=== PATIENT | male | born 1990 | race Caucasian/White ===

== ENCOUNTER 2023-01-31 17:46 | Emergency (ER) | payer BC, OTHER, SELFPAY ==
--- NOTE | 2023-01-31 17:49 | ED.URI ---
HPI - URI/Sore Throat General Chief Complaint: Upper Respiratory Infection Stated Complaint: cough,bilateral eye pressure Time Seen by Provider: 01/31/23 17:48 Source: patient Mode of arrival: ambulatory Limitations: no limitations History of Present Illness HPI Narrative: Harjit is a 32-year-old male patient presenting to clinic today with complaints of cough, sinus congestion, and bilateral eye pressure. He reports his symptoms have been going on for 2 and half weeks. He is reporting some yellow nasal drainage. He thinks he may have a sinus infection. Denies any fever or chills. MD elicited complaint: sore throat and nasal congestion Related Data Home Medications Medication Instructions Recorded Confirmed buspirone 10 mg tablet 10 mg PO DAILY 01/31/23 01/31/23 carboxymethylcellulose sodium 0.5 2 drp EACH EYE DAILY 01/31/23 01/31/23 % eye drops (Refresh Tears) divalproex 250 mg tablet,extended 250 mg PO DAILY 01/31/23 01/31/23 release 24 hr montelukast 10 mg tablet 10 mg PO HS 01/31/23 01/31/23 ubrogepant 100 mg tablet (Ubrelvy) 100 mg PO DAILY 01/31/23 01/31/23 Allergies Allergy/AdvReac Type Severity Reaction Status Date / Time SOMETHING WITH WELDING Allergy Severe Anaphylactic Uncoded 01/27/11 10:22 Shock Review of Systems Review of Systems: Pertinent positives per HPI. Patient denies any fever, chills, rash, headache, visual changes, dizziness, shortness of breath, chest pain, palpitations, nausea, vomiting, diarrhea, constipation, abdominal pain, or any urinary issues. PMFSH Comments At the time of my signature, I reviewed and agree with the nursing past medical, surgical, social, and family history. There is no relevant family history pertinent to the patient complaint. Exam Narrative: General: Well-developed, well nourished, in no apparent distress Head: Normocephalic, atraumatic Eyes: Pupils equally round and reactive to light bilaterally, EOM intact, sclera and conjunctive clear, no discharge, lids normal Ears: TMs intact and clear, ear canals clear, no drainage, grossly hearing normal. Nose: Nares patent, no discharge, no inflammation, no sinus tenderness. Mouth: Oral pharynx without lesions or masses, good dentition, MMM. Neck: Supple, trachea midline, no enlargement of anterior or posterior cervical nodes, no thyroid masses or goiter palpable. Cardio: Regular rate and rhythm, s1 and s2 normal, no murmur appreciated. Resp: Clear to auscultation bilaterally, no rhonchi, rales, wheezing or rubs Course Course Emergency Course: Portions of this record may have been created with voice recognition software. Level of Care: Express Care Visit Vital Signs Vital signs: Vital signs reviewed MDM - URI/Sore Throat MDM Narrative Medical decision making narrative: At the time of visit patient is resting comfortably on the exam table. I suspect patient has acute bacterial rhinosinusitis. Prescription for Augmentin and prednisone was sent to the pharmacy and supportive measures were discussed with the patient he voiced understanding discharge instructions and agrees to treatment plan. Patient is nontoxic appearing. Return precautions were reviewed. Differential Diagnosis Differential diagnosis: Likely sinusitis, viral infection, influenza and pharyngitis Discharge Plan Discharge Clinical Impression: Acute bacterial rhinosinusitis Patient Disposition: Home, Self-Care Condition: Stable Instructions: Antibiotic Form, Rhinosinusitis (ED) Additional Instructions: Take prescription medications only as prescribed-prednisone and Augmentin Increase fluids and stay well hydrated Tylenol/motrin for pain/fever Flonase and OTC antihistamines as directed Vicks vapor rub to open sinuses Sinus rinses for congestion Cepacol spray, cough drops, throat lozenges, warm tea with honey/lemon, gargle salt water to soothe throat BRAT diet for diarrhea Clear liquids x 24 h
[2023-01-31 18:05] VITALS: BP 146/85; PULSE 70; RESP 16; TEMP 36.4; O2SAT 100
== END 2023-01-31 18:15 | disposition home or self-care (01) ==
PROVIDERS: Emergency Provider Nurse Practitioner Family; PCP Family Medicine
DX: J01.90 Acute sinusitis, unspecified (principal); F41.9 Anxiety disorder, unspecified; Z86.16 Personal history of COVID-19
CPT/HCPCS: 87880; 99213; G0463

== ENCOUNTER 2023-06-01 16:17 | Emergency (ER) | payer OTHER, SELFPAY ==
[2023-06-01 16:28] VITALS: BP 118/83; PULSE 70; RESP 18; TEMP 36.4; O2SAT 100
[2023-06-01 16:33] VITALS: BP 118/83; PULSE 70; RESP 18; TEMP 36.4; O2SAT 100
--- NOTE | 2023-06-01 16:36 | ED.GENADULT ---
HPI - General Adult General Chief complaint: Upper Respiratory Infection Stated complaint: sorethroat Source: patient, RN notes reviewed and old records reviewed Mode of arrival: ambulatory Limitations: no limitations History of Present Illness HPI narrative: 33-year-old male patient presents to [facility] with complaints cough, congestion, sinus pressure this started about 12-13 days ago. Patient states symptoms are worsening. Patient states he is now also having yellow thick drainage from nose and coughing up thick yellow sputum. Patient taking [id number] medications with no relief. Related Data Home Medications Medication Instructions Recorded Confirmed buspirone 10 mg tablet 10 mg PO DAILY 01/31/23 01/31/23 carboxymethylcellulose sodium 0.5 2 drp EACH EYE DAILY 01/31/23 01/31/23 % eye drops (Refresh Tears) divalproex 250 mg tablet,extended 250 mg PO DAILY 01/31/23 01/31/23 release 24 hr montelukast 10 mg tablet 10 mg PO HS 01/31/23 01/31/23 ubrogepant 100 mg tablet (Ubrelvy) 100 mg PO DAILY 01/31/23 01/31/23 aspirin 81 mg chewable tablet 81 mg PO DAILY 06/01/23 06/01/23 cetirizine 10 mg tablet (Zyrtec) 10 mg PO DAILY 06/01/23 06/01/23 dicyclomine 20 mg tablet 20 mg PO BID 06/01/23 06/01/23 magnesium oxide 400 mg PO DAILY 06/01/23 06/01/23 ondansetron HCl 8 mg tablet 8 mg PO Q12H 06/01/23 06/01/23 propranolol 120 mg capsule,24 120 mg PO DAILY 06/01/23 06/01/23 hr,extended release trazodone 100 mg tablet mg 06/01/23 06/01/23 Allergies Allergy/AdvReac Type Severity Reaction Status Date / Time SOMETHING WITH WELDING Allergy Severe Anaphylactic Uncoded 06/01/23 16:28 Shock Review of Systems Constitutional: Constitutional: Reports no additional constitutional complaints, Denies body ache(s), Denies chills, Denies fatigue, Denies fever(s) and Reports headache(s) Eyes: Eyes: Reports no additional eye complaints and Denies blurry vision ENT: Reports system reviewed and no additional complaints, except as documented, Denies vertigo, Denies dizziness, Denies ear discharge, Denies otalgia, Denies facial pain, Reports headache(s), Reports nasal congestion, Reports nasal discharge, Reports sinus pain, Reports sinus pressure and Denies sore throat Cardiovascular: Cardiovascular: Reports no additional cardiovascular complaints, Denies chest pain, Denies chest pain at rest, Denies rapid heart rate and Denies dyspnea Respiratory: Respiratory: Reports no additional respiratory complaints, Reports chest congestion, Reports cough, Denies pain on inspiration, Denies pain with cough and Denies dyspnea Gastrointestinal: Gastrointestinal: Denies abdominal pain, Denies diarrhea, Denies nausea and Denies vomiting Integumentary/Breasts: Skin/Breast: Denies rash Neurologic: Reports system reviewed and no additional complaints, except as documented, Denies vertigo, Denies dizziness and Denies headache(s) Endocrine: Endocrine: Denies fatigue PMFSH Comments At the time of my signature, I reviewed and agree with the nursing past medical, surgical, social, and family history. There is no relevant family history pertinent to the patient complaint. Exam Const: General: cooperative, healthy appearing, no acute distress and well nourished Nutritional Appearance: well nourished Orientation/consciousness: patient oriented x3 Limitations: no limitations HENMT: Head: normal to inspection and normocephalic Ears: external ears normal, TM's normal bilaterally, EAC's normal and mastoids normal Face/Nose/Sinus: Abnormal mucous membranes and turbinates present boggy bilateral and erythematous bilateral, Nasal discharge present purulent bilateral, normal facial exam and sinus tenderness Face and sinus: normal facial exam and sinus tenderness maxillary Mouth: Yes Normal oral and palatal mucosa present, Yes oropharynx normal and Yes moist mucous membranes Throat: tonsils normal, uvula midline, normal tonsils, no peritonsillar masses, catechist
== END 2023-06-01 17:02 | disposition home or self-care (01) ==
PROVIDERS: Emergency Provider Registered Nurse
DX: J01.90 Acute sinusitis, unspecified (principal); Z86.16 Personal history of COVID-19
CPT/HCPCS: 99213; G0463

== ENCOUNTER 2024-11-03 10:32 | Emergency (ER) | payer OTHER, SELFPAY ==
--- OUTSIDE RECORDS SUMMARY | 2024-11-03 10:35 | XMS_ITS | Clinical Summary ---
Author Organization [facility] Address [address] [place] [address] Care Team Providers Care Vice President Talent Management Name Role Phone Gabby Rai MD Primary Care Provider [phone]- [phone] Source Comments [facility],non-owned Affiliates and Associated Physician Practices is amultiple site organization consisting of ambulatory clinics and hospital sitesin [place], [place], [place] and [place]. This disclosure is being madepursuant to the Care Everywhere program and may not contain all information available regarding this patient. Last updated 17.[facility] [email or web address] Allergies No known active allergies Medications * Be aware that medications may not be up to date on this document. Alwaysverify current medications with the patient. 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 Gender Identity Not on file Sexual Orientation Not on file Last Filed Vital Signs Vital Sign Reading Time Taken Comments Blood Pressure 130/59 09/02/2017 4:07 PM CDT Pulse 81 09/02/2017 1:20 PM CDT Temperature 36.7 C (98.1 F) 09/02/2017 12:26 PM CDT Respiratory Rate 6 09/02/2017 1:20 PM CDT Oxygen Saturation 100% 09/02/2017 4:07 PM CDT Inhaled Oxygen Concentration - - Weight 86.2 kg (190 lb) 09/02/2017 12:26 PM CDT Height 180.3 cm (5' 11) 09/02/2017 12:26 PM CDT Body Mass Index 26.5 09/02/2017 12:26 PM CDT Plan of Treatment Health Maintenance Due Date Last Done Comments HIV SCREENING 02/18/2007 HEPATITIS C SCREENING 02/14/2010 DTAP/TDAP/TD VACCINES (1 - Tdap) 02/18/2011 HEPATITIS B VACCINE (1 of 3 - 19+ 3-dose series) 02/18/2011 HPV VACCINE (1 - 3-dose SCDM series) 02/18/2019 DEPRESSION SCREENING 02/28/2024 COVID-19 VACCINE (1 - 2023-2 5 season) 2024 INFLUENZA VACCINE (#1) 2024 ZOSTER VACCINE (1 of 2) 02/18/2042 HIB VACCINE Aged Out No longer eligi ble based on patient's age to complete this topic MENINGOCOCCAL (Group B) VACC INE SHARED DECISION-MAKING Aged Out No longer eligibl e based on patient's age to complete this topic MENINGOCOCCAL GROUPS A/C/Y/W VACCINE Aged Out No longer eligible b ased on patient's age to complete this topic PNEUMOCOCCAL VACCINE Aged Out No long er eligible based on patient's age to complete this topic Insurance [facility] [employer] Address: [address] [facility] [place] [address] [facility] Member Subscriber Plan / Payer (Ef fective 2017-Present) Name:Arnulfo Hendricks Relation to Subscriber:Self Name:ARNULFO HENDRICKS Payer ID:[id number] (NAIC) Group ID:[id number] Type:PPO Address: [facility] [id number] Care Teams Vice President Talent Management Relationship Specialty Start Date End Date Gabby Rai MD [address] [place] [id number] PCP - General 9/3/10
--- OUTSIDE RECORDS SUMMARY | 2024-11-03 10:35 | XMS_ITS | Encounter Summary ---
Author Organization [facility] Address [address] [place] [address] Care Team Providers Care Kelp Or Seagrass Gatherer Name Role Phone Noah Combs NP Primary Care Provide r Paz Leon MD Primary Care Provider [phone]- [phone] Yoon Ayoub APRN Primary Care Provider +- [phone] Yoon Ayoub APRN Primary Care Provider +- [phone] Encounter Details Date Type Department Care Team (Latest Contact Info) Description 07/04/2023 MyChart Message Enc [facility] Family & Internal Medicine [facility] [address] [place] [address] Noah Combs, DEBORAH [address] [place] [address] [place] [address] Changing from testosterone pump to injection Social History Tobacco Use Types Packs/Day Years Used Date Smoking Tobacco: Never Smokeless Tobacco: Never Alcohol Use Standard Drinks/Week Comments No 0 (1 standard drink = 0.6 oz pur e alcohol) PHQ-2 Answer Date Recorded Patient Health Questionnaire-2 Score 0 05/08/2023 Sex and Gender Information Value Date Recorded Sex Assigned at Male 03/29/2024 3:10 PM PLASTIC TILE SETTER Legal Sex Male 7:49 PM CDT Gender Identity Not on file Sexual Orientation Not on file documented as of this encounter Progress Notes * Camille Reid MA - 07/06/2023 11:49 AM CDT Please advise * Remedios Mcfarland RN - 07/04/2023 10:36 AM CDT Please advise. documented in this encounter Plan of Treatment Upcoming Encounters Date Type Department Care Team (Late st Contact Info) Description 12/30/2024 4:20 PM PLASTIC TILE SETTER Office Visit [facility] Family & Internal Medicine [address] [address] Yoon Ayoub APRN [id number] [address] documented as of this encounter Visit Diagnoses Not on filedocumented in this encounter Additional Health Concerns Infection Onset Date Last Indicated Resolved Time COVID-19 Rule Out 01/16/2024 01/16/2024 01/16/2024 4:07 PM PLASTIC TILE SETTER documented as of this encounter Care Teams Kelp Or Seagrass Gatherer Relationship Specialty Start Date End Date Noah Combs NP PCP - General NURSE PRACTITIONER ADULT HEALTH 04/13/23 09/18/23 Paz Leon MD [address] [place] [address] [phone] PCP - General INTERNAL MEDICINE 09/19/23 10/02/23 Yoon Ayoub APRN [id number] [phone] PCP - General NURSE PRACTITIONER 10/03/23 10/04/23 Yoon Ayoub APRN [id number] [place] [address] PCP - General NURSE PRACTITIONER 10/06/23 documented as of this encounter
--- OUTSIDE RECORDS SUMMARY | 2024-11-03 10:35 | XMS_ITS | Clinical Summary ---
Author Organization [facility] Address [facility] [place] [address] Care Team Providers Care Director Translational Name Role Phone Yoon Ayoub APRN Primary Care Provider [phone]- [phone] Allergies No known active allergies Medications magnesium oxide 400 MG tablet 9 Active aspirin 81 MG chewable tablet Chew 1 tablet (81 mg total) by mouth daily. Active divalproex ER (DEPAKOTE) 500 MG 24 hr tablet Take 1 tablet (500 mg total) by mouth 2 (two) times a day. 4 Active ondansetron (ZOFRAN) 8 MG tablet Take 1 tablet (8 mg total) by mouth as needed. 4 Active REFRESH TEARS 0.5 % Solution ophthalmic solution Place 1 drop into both eyes as needed. 3 Active UBRELVY 100 MG tablet 3 Active divalproex ER (DEPAKOTE) 250 MG 24 hr tablet 4 Active traMADol (ULTRAM) 50 MG tabletIndications: Acute Pain < 7 Day Supply Take 1 tablet (50 mg total) by mouth every 6 (six) hours as needed for Pain. Indications: Acute Pain < 7 Day Supply 28 tablet 5 Active busPIRone (BUSPAR) 15 MG tabletIndications: Anxiety Take 1 tablet (15 mg total) by mouth 2 (two) times a day. 90 tablet 3 5 Active escitalopram (LEXAPRO) 20 MG tabletIndications: Moderate episode of recurrent major depressive disorder (CMS/HCC),Anxiety Take 1 tablet (20 mg total) by mouth daily. 90 tablet 3 5 Active testosterone cypionate (DEPO TESTOSTERONE) 200 MG/ML injectionIndicatio ns:Low testosterone in male,Primary hypogonadism in male Inject 150mg/0.75mL IM once weekly 4 mL 3 5 Active traZODone (DESYREL) 100 MG tabletIndications: Primary insomnia Take 1 tablet (100 mg total) by mouth nightly at bedtime. 90 tablet 2 5 Active fenofibrate 160 MG tabletIndications: High triglycerides TAKE 1 TABLET(160 MG) BY MOUTH DAILY 90 tablet 5 Active cetirizine (ZYRTEC) 10 MG tabletIndications: Environmental and seasonal allergies TAKE 1 TABLET BY MOUTH EVERY DAY 90 tablet 1 5 Active B-D 3CC LUER-JESUS SYR 50NO4-8/2 23G X 1-/2 3 ML Misc 5 Active Active Problems Problem Noted Date Diagnosed Date Acute low back pain with sci atica, sciatica laterality unspecified, unspecified back pain laterality 06/24/2024 Assessment & Plan (06/24/2024 1:35 PM CDT): -heat therapy/stretches Rx with medrol michelle and tizanidine Pt to return to clinic if problem continues Elevated BP without diagnosis of hypertension Assessment & Plan (06/24/2024 1:37 PM CDT): Possibly due to pain - reassess with his pcp Allergic rhinitis 03/29/2024 Attention disturbance 03/29/2024 Dry eye syndrome of bilateral lacrimal glands Encounter for medical assessment 03/29/2024 Hemiplegic migraine, intract able, without status migrainosus 03/29/2024 Hyperopia 03/29/2024 Insomnia 03/29/2024 Headache 03/29/2024 Moderate episode of recurrent major depressive d isorder 12/21/2023 Migraine without aura and wi thout status migrainosus, not intractable 10/09/2023 Obesity (BMI 30-39.9) 10/09/2023 Low testosterone in male 10/09/2023 Primary hypogonadism in male 10/09/2023 Anxiety 10/09/2023 TBI (traumatic brain injury) 10/09/2023 TIA (transient ischemic attack) 08/13/2017 Injury of head 10/30/2009 Overview (04/25/2023): Encounters Date Type Department Care Team Description 10/07/2024 MyChart Message Enc [facility] Internal [address] [address] Yoon Ayoub, LOSS MITIGATION SPECIALIST Labs 10/01/2024 Orders Only [address] [address] Yoon Ayoub, LOSS MITIGATION SPECIALIST 09/30/2024 Orders Only [facility] Internal [address] [address] Yoon Ayoub, LOSS MITIGATION SPECIALIST 09/24/2024 Orders Only [address] [address] Yoon Ayoub, LOSS MITIGATION SPECIALIST 09/24/[address] [address] Yoon Ayoub, LOSS MITIGATION SPECIALIST Referral 09/13/2024 8:40 AM CDT Office Visit [address] [address] Jeramy Lopez PA URI/ENT Symptoms (Pt c/o sinus pressure,cough,runny nose (dark yellow), fatigue X 3 weeks) 09/13/2024 Travel 08/08/2024 Telephone [facility] Internal [address] [address] Yoon Ayoub APRN Prior Authorization 08/05/2024 Scan HEALTH INFO SRVCS Scanned, [facility] 08/04/2024 Results Follow-Up [facility] Family & Internal Medicine [facility] [address] [place] [address] Yoon Ayoub APRN TESTOSTERONE, FREE & TOTAL, COMPREHENSIVE METABOLIC PANEL, TSH W/REFLEX, Additional followed-up results: 3 from Last 3 Months Immunizations Immunization Administration Dates Next Due Adenovirus Vaccine 09/12/2011 Anthrax Vaccine 02/07/2014,09/07/2013,05/20/2013 HPV4 (Gardasil) 08/01/2012 Hepatitis A/Hepatitis B(Twinrix) 08/01/2012,12/28,09/12/2011 Influenza (FluMist) 01/02/2013,11/28/2011 Influenza (Generic) 11/27/2017, 7,12/28/2016,02/06/2016 ,05/16/2015,12/23/2011 Influenza Adult (Generic) 11/24/2021,01/14/2021, 11/27/2013 MMR (MMRII) 12/23/2011 Meningococcal (Menactra) 09/09/2011 Polio IPV (Ipol) 09/09/2011 Small Pox 05/20/2013 Tdap (Generic) 11/23/2021,09/09/2011 Typhoid (Typhim ) 05/09/2013 Varicella (Varivax) 12/23/2011 Yellow Fever (YF- Vax) 05/20/2013 Social History Tobacco Use Types Packs/Day Years Used Date Smoking Tobacco: Never Passive Smoke Exposure: Never Smokeless Tobacco: Never Tobacco Cessation:Counseling Given: No Alcohol Use Standard Drinks/Week Comments No 0 (1 standard drink = 0.6 oz pur e alcohol) PHQ-2 Answer Date Recorded Patient Health Questionnaire-2 Score 3 06/18/2024 Sex and Gender Information Value Date Recorded Sex Assigned at Male 03/29/2024 3:10 PM CUFF MAKER Legal Sex Male 7:49 PM CDT Gender Identity Not on file Sexual Orientation Not on file Last Filed Vital Signs Vital Sign Reading Time Taken Comments Blood Pressure 138/83 09/13/2024 8:36 AM CDT Pulse 77 09/13/2024 8:36 AM CDT Temperature 36.3 C (97.4 F) 09/13/2024 8:36 AM CDT Respiratory Rate 16 09/13/2024 8:36 AM CDT Oxygen Saturation 98% 09/13/2024 8:36 AM CDT Inhaled Oxygen Concentration - - Weight 117.9 kg (260 lb) 09/13/2024 8:36 AM CDT Height 180.3 cm (5' 11) 09/13/2024 8:36 AM CDT Body Mass Index 36.26 09/13/2024 8:36 AM CDT Plan of Treatment Upcoming Encounters Date Type Department Care Team (Late st Contact Info) Description 12/30/2024 4:20 PM CUFF MAKER Office Visit [facility] Family & Internal Medicine [facility] [address] [place] [address] Yoon Ayoub, DELILAH [address] [address] Health Maintenance Due Date Last Done Comments HPV Vaccines (2 - Male 3-dose series) 08/29/2012 08/01/2012 COVID-19 Vaccine ( season) 2024 12/07/2022, 03/07/2022, 03/25/2021, Additional history exists ASCVD Statin 06/18/2025 Postponed from 1992 (Patient Refused) Annual Physical 06/18/2025 06/18/2024 DTaP, Tdap and Td Vaccines (3 - Td or Tdap) 11/24/2031 11/23/2021, 09/09/2011 Hepatitis C 05/07/2053 Postponed from 02/18/2010 (Patient Refused) Meningococcal Vaccine Aged Out 09/09/2011 No amanda jayleen eligible based on patient's age to complete this topic Hepatitis B Vaccines Completed 08/01/2012, 01/12/2012, 09/12/2011 PHQ-2 (Physician [place]) Completed 06/18/2024 Meningococcal B Vaccine Aged Out No l onger eligible based on patient's age to complete this topic Pneumococcal Vaccine: Pediatrics (0 to 5 Years) and At-Risk Patients (6 to 49 Years) Aged Out No longer eligible based on patient's age to complete this topic RSV Immunizations Under 20 Months Aged Out No longer eligible based on patient's age to complete this topic Insurance [facility] Advance Directives Documents on File Type Date Recorded Patient Manager Intensive Care Unit Expl anation Advance Directives and Living Will 08/22/2017 2:23 PM 08/13/2017 POA FOR HEALTHCARE * Full Code (Latest Code Status on File) Date Activated Date Inactivated Comments 08/13/2017 5:23 AM 08/13/2017 2:30 PM * Full Code Date Activated Date Inactivated Comments 08/13/2017 4:33 AM 08/13/2017 5:23 AM Care Teams Director Translational Relationship Specialty Start Date End Date Yoon Ayoub APRN [id number] [place] [address] PCP - General NURSE PRACTITIONER 10/06/23
--- OUTSIDE RECORDS SUMMARY | 2024-11-03 10:35 | XMS_ITS | Encounter Summary ---
Author Organization [facility] Address [address] [place] [address] Care Team Providers Care Cable Worker Helper Name Role Phone Noah Combs NP Primary Care Provide r Paz Leon MD Primary Care Provider +1- [phone] Yoon Ayoub APRN Primary Care Provider +- [phone] Yoon Ayoub APRN Primary Care Provider +- [phone] Encounter Details Date Type Department Care Team (Late st Contact Info) Description 05/24/2023 MyChart Message Enc [facility] Family & Internal Medicine [facility] [id number] [place] [address] Noah Combs, DEBORAH [address] [place] [address] [place] [address] Lab work Social History Tobacco Use Types Packs/Day Years Used Date Smoking Tobacco: Never Smokeless Tobacco: Never Alcohol Use Standard Drinks/Week Comments No 0 (1 standard drink = 0.6 oz pur e alcohol) PHQ-2 Answer Date Recorded Patient Health Questionnaire-2 Score 0 05/08/2023 Sex and Gender Information Value Date Recorded Sex Assigned at Male 03/29/2024 3:10 PM LEAD WAREHOUSE ASSOCIATE Legal Sex Male 7:49 PM CDT Gender Identity Not on file Sexual Orientation Not on file documented as of this encounter Progress Notes * Remedios L Kachuba, RN - 05/24/2023 2:19 PM CDT Please review and recommend. documented in this encounter Plan of Treatment Upcoming Encounters Date Type Department Care Team (Late st Contact Info) Description 12/30/2024 4:20 PM LEAD WAREHOUSE ASSOCIATE Office Visit [facility] Family & Internal Medicine [facility] [address] [place] [address] Yoon Ayoub APRN [id number] [id number] documented as of this encounter Visit Diagnoses Not on filedocumented in this encounter Additional Health Concerns Infection Onset Date Last Indicated Resolved Time COVID-19 Rule Out 01/16/2024 01/16/2024 01/16/2024 4:07 PM LEAD WAREHOUSE ASSOCIATE documented as of this encounter Care Teams Cable Worker Helper Relationship Specialty Start Date End Date Noah Combs NP PCP - General NURSE PRACTITIONER ADULT HEALTH 04/13/23 09/18/23 [place] [id number] [address] PCP - General INTERNAL MEDICINE 09/19/23 10/02/23 Yoon Ayoub APRN [id number] [address] PCP - General NURSE PRACTITIONER 10/03/23 10/04/23 Yoon Ayoub APRN [id number] [facility] [address] [place] [address] PCP - General NURSE PRACTITIONER 10/06/23 documented as of this encounter
--- OUTSIDE RECORDS SUMMARY | 2024-11-03 10:35 | XMS_ITS | Encounter Summary ---
Author Organization [facility] Address [address] [place] [address] Care Team Providers Care Powder Loader Name Role Phone Noah Combs NP Primary Care Provide r Paz Leon MD Primary Care Provider +1- [phone] Yoon Ayoub APRN Primary Care Provider +- [phone] Yoon Ayoub APRN Primary Care Provider +- [phone] Encounter Details Date Type Department Care Team (Late st Contact Info) Description 05/26/2023 MyChart Message Enc [facility] Family & Internal Medicine [facility] [id number] [place] [address] Noah Combs, DEBORAH [address] [place] [address] [place] [address] Low testosterone Social History Tobacco Use Types Packs/Day Years Used Date Smoking Tobacco: Never Smokeless Tobacco: Never Alcohol Use Standard Drinks/Week Comments No 0 (1 standard drink = 0.6 oz pur e alcohol) PHQ-2 Answer Date Recorded Patient Health Questionnaire-2 Score 0 05/08/2023 Sex and Gender Information Value Date Recorded Sex Assigned at Male 03/29/2024 3:10 PM PAD MAKING MACHINE OPERATOR Legal Sex Male 7:49 PM CDT Gender Identity Not on file Sexual Orientation Not on file documented as of this encounter Progress Notes * Remedios L Kachuba, RN - 05/30/2023 12:29 PM CDT Please change script * Camille Reid MA - 05/29/2023 8:59 AM CDT Please send in testosterone RX. Thanks! documented in this encounter Plan of Treatment Upcoming Encounters Date Type Department Care Team (Late st Contact Info) Description 12/30/2024 4:20 PM PAD MAKING MACHINE OPERATOR Office Visit [facility] Family & Internal Medicine [address] [address] Yoon Ayoub APRN [id number] [phone] documented as of this encounter Visit Diagnoses Not on filedocumented in this encounter Additional Health Concerns Infection Onset Date Last Indicated Resolved Time COVID-19 Rule Out 01/16/2024 01/16/2024 01/16/2024 4:07 PM PAD MAKING MACHINE OPERATOR documented as of this encounter Care Teams Powder Loader Relationship Specialty Start Date End Date Noah Combs NP PCP - General NURSE PRACTITIONER ADULT HEALTH 04/13/23 09/18/23 [place] [address] [address] PCP - General INTERNAL MEDICINE 09/19/23 10/02/23 Yoon Ayoub APRN [id number] [id number] PCP - General NURSE PRACTITIONER 10/03/23 10/04/23 Yoon Ayoub APRN [id number] [place] [address] PCP - General NURSE PRACTITIONER 10/06/23 documented as of this encounter
--- OUTSIDE RECORDS SUMMARY | 2024-11-03 10:35 | XMS_ITS | Encounter Summary ---
Author Organization [facility] Address [address] [place] [address] Care Team Providers Care Washtub Worker Helper Name Role Phone Yoon Ayoub APRN Primary Care Provider +1- [phone] Encounter Details Date Type Department Care Team (Late Contact Info) Description 12/01/2023 MyChart Message Enc [facility] Family & Internal Medicine [address] [address] [facility] Provider Appt needs to be reset Social History Tobacco Use Types Packs/Day Years Used Date Smoking Tobacco: Never Passive Smoke Exposure: Never Smokeless Tobacco: Never Alcohol Use Standard Drinks/Week Comments No 0 (1 standard drink = 0.6 oz pur e alcohol) PHQ-2 Answer Date Recorded Patient Health Questionnaire-2 Score 0 05/08/2023 Sex and Gender Information Value Date Recorded Sex Assigned at Male 03/29/2024 3:10 PM UPPER TIER Legal Sex Male 7:49 PM CDT Gender Identity Not on file Sexual Orientation Not on file documented as of this encounter Plan of Treatment Upcoming Encounters Date Type Department Care Team (Late Contact Info) Description 12/30/2024 4:20 PM UPPER TIER Office Visit [facility] Family & Internal [address] [address] Yoon Ayoub APRN [address] [place] [address] [place] [address] documented as of this encounter Visit Diagnoses Not on filedocumented in this encounter Additional Health Concerns Infection Onset Date Last Indicated Resolved Time COVID-19 Rule Out 01/16/2024 01/16/2024 01/16/2024 4:07 PM UPPER TIER documented as of this encounter Care Teams Washtub Worker Helper Relationship Specialty Start Date End Date Yoon Ayoub APRN [id number] [address] PCP - General NURSE PRACTITIONER 10/06/23 documented as of this encounter
--- OUTSIDE RECORDS SUMMARY | 2024-11-03 10:35 | XMS_ITS | Encounter Summary ---
Author Organization [facility] Address [address] [place] [address] Care Team Providers Care Cushion Maker Hand Name Role Phone Noah Combs NP Primary Care Provide r Paz Leon MD Primary Care Provider +1- [phone] Yoon Ayoub APRN Primary Care Provider +- [phone] Yoon Ayoub APRN Primary Care Provider +- [phone] Encounter Details Date Type Department Care Team (Late st Contact Info) Description 06/02/2023 MyChart Message Enc [facility] Family & Internal Medicine [facility] [address] [place] [address] Noah Combs, DEBORAH [address] [place] [address] [place] [address] Testosterone gel Social History Tobacco Use Types Packs/Day Years Used Date Smoking Tobacco: Never Smokeless Tobacco: Never Alcohol Use Standard Drinks/Week Comments No 0 (1 standard drink = 0.6 oz pur e alcohol) PHQ-2 Answer Date Recorded Patient Health Questionnaire-2 Score 0 05/08/2023 Sex and Gender Information Value Date Recorded Sex Assigned at Male 03/29/2024 3:10 PM RAT CULTURIST Legal Sex Male 7:49 PM CDT Gender Identity Not on file Sexual Orientation Not on file documented as of this encounter Plan of Treatment Upcoming Encounters Date Type Department Care Team (Late st Contact Info) Description 12/30/2024 4:20 PM RAT CULTURIST Office Visit [facility] Family & Internal Medicine - [place] [address] [place] [address] Yoon Ayoub APRN [address] [address] documented as of this encounter Visit Diagnoses Not on filedocumented in this encounter Additional Health Concerns Infection Onset Date Last Indicated Resolved Time COVID-19 Rule Out 01/16/2024 01/16/2024 01/16/2024 4:07 PM RAT CULTURIST documented as of this encounter Care Teams Cushion Maker Hand Relationship Specialty Start Date End Date Noah Combs NP PCP - General NURSE PRACTITIONER ADULT HEALTH 04/13/23 09/18/23 [place] [address] [facility] [address] [place] [address] PCP - General INTERNAL MEDICINE 09/19/23 10/02/23 Yoon Ayoub APRN [id number] [facility] [address] [address] PCP - General NURSE PRACTITIONER 10/03/23 10/04/23 Yoon Ayoub APRN [address] [facility] [address] [place] [address] PCP - General NURSE PRACTITIONER 10/06/23 documented as of this encounter
--- OUTSIDE RECORDS SUMMARY | 2024-11-03 10:35 | XMS_ITS | Encounter Summary ---
Author Organization [facility] Address [address] [place] [address] Care Team Providers Care Civil Designer Name Role Phone Noah Combs NP Primary Care Provide r Paz Leon MD Primary Care Provider +1- [phone] Yoon Ayoub APRN Primary Care Provider +- [phone] Yoon Ayoub APRN Primary Care Provider +- [phone] Encounter Details Date Type Department Care Team (Late st Contact Info) Description 06/05/2023 MyChart Message Enc [facility] Family & Internal Medicine [address] [address] [facility] Provider PRIOR AUTHORIZATION Social History Tobacco Use Types Packs/Day Years Used Date Smoking Tobacco: Never Smokeless Tobacco: Never Alcohol Use Standard Drinks/Week Comments No 0 (1 standard drink = 0.6 oz pur e alcohol) PHQ-2 Answer Date Recorded Patient Health Questionnaire-2 Score 0 05/08/2023 Sex and Gender Information Value Date Recorded Sex Assigned at Male 03/29/2024 3:10 PM COMMERCIAL SALES REPRESENTATIVE Legal Sex Male 7:49 PM CDT Gender Identity Not on file Sexual Orientation Not on file documented as of this encounter Progress Notes * Remedios Mcfarland RN - 06/05/2023 3:39 PM CDT PA re-submitted with new information * Savi Hellen Yanez - 06/05/2023 3:11 PM CDT Insurance has been updated in patients chart. documented in this encounter Plan of Treatment Upcoming Encounters Date Type Department Care Team (Late st Contact Info) Description 12/30/2024 4:20 PM COMMERCIAL SALES REPRESENTATIVE Office Visit [facility] Family & Internal Medicine - [place] [address] [place] [address] Yoon Ayoub APRN [address] [phone] documented as of this encounter Visit Diagnoses Not on filedocumented in this encounter Additional Health Concerns Infection Onset Date Last Indicated Resolved Time COVID-19 Rule Out 01/16/2024 01/16/2024 01/16/2024 4:07 PM COMMERCIAL SALES REPRESENTATIVE documented as of this encounter Care Teams Civil Designer Relationship Specialty Start Date End Date Noah Combs NP PCP - General NURSE PRACTITIONER ADULT HEALTH 04/13/23 09/18/23 [place] [address] [address] PCP - General INTERNAL MEDICINE 09/19/23 10/02/23 Yoon Ayoub APRN [address] [address] PCP - General NURSE PRACTITIONER 10/03/23 10/04/23 Yoon Ayoub APRN [address] [address] PCP - General NURSE PRACTITIONER 10/06/23 documented as of this encounter
--- OUTSIDE RECORDS SUMMARY | 2024-11-03 10:35 | XMS_ITS | Encounter Summary ---
Author Organization [facility] Address [address] [place] [address] Care Team Providers Care Hat Lining Blocker Name Role Phone Yoon Ayoub APRN Primary Care Provider +1- [phone] Encounter Details Date Type Department Care Team (Late st Contact Info) Description 02/02/2024 Shootitlivet Message Enc [facility] Family & Internal [facility] [address] [place] [address] Yoon Ayoub APRN [address] [place] [address] Testosterone. Social History Tobacco Use Types Packs/Day Years Used Date Smoking Tobacco: Never Passive Smoke Exposure: Never Smokeless Tobacco: Never Alcohol Use Standard Drinks/Week Comments No 0 (1 standard drink = 0.6 oz pur e alcohol) PHQ-2 Answer Date Recorded Patient Health Questionnaire-2 Score 0 05/08/2023 Sex and Gender Information Value Date Recorded Sex Assigned at Male 03/29/2024 3:10 PM VOCATIONAL AIDE Legal Sex Male 7:49 PM CDT Gender Identity Not on file Sexual Orientation Not on file documented as of this encounter Progress Notes * Karime Ron RN - 02/05/2024 9:02 AM CST Noted. TIONAL AIDE * Yoon Ayoub APRN - 02/04/2024 10:40 PM CST See other message TIONAL AIDE * Kalin Horn MA - 02/02/2024 7:22 AM CST Please advise TIONAL AIDE documented in this encounter Plan of Treatment Upcoming Encounters Date Type Department Care Team (Late st Contact Info) Description 12/30/2024 4:20 PM VOCATIONAL AIDE Office Visit [facility] Family & Internal Medicine [facility] [address] [place] [phone] Yoon Ayoub APRN [address] [phone] documented as of this encounter Visit Diagnoses Not on filedocumented in this encounter Care Teams Hat Lining Blocker Relationship Specialty Start Date End Date Yoon Ayoub APRN [address] [phone] PCP - General NURSE PRACTITIONER 10/06/23 documented as of this encounter
--- OUTSIDE RECORDS SUMMARY | 2024-11-03 10:35 | XMS_ITS | Encounter Summary ---
Author Organization [facility] Address [address] [place] [address] Care Team Providers Care Chief Wheelage Clerk Name Role Phone Yoon Ayoub APRN Primary Care Provider +1- [phone] Encounter Details Date Type Department Care Team (Late Contact Info) Description 10/10/2023 Code71 Message Enc [facility] Family & Internal Medicine [facility] [address] [place] [address] [facility] Provider NEW LAB ORDERS Social History Tobacco Use Types Packs/Day Years Used Date Smoking Tobacco: Never Passive Smoke Exposure: Never Smokeless Tobacco: Never Alcohol Use Standard Drinks/Week Comments No 0 (1 standard drink = 0.6 oz pur e alcohol) PHQ-2 Answer Date Recorded Patient Health Questionnaire-2 Score 0 05/08/2023 Sex and Gender Information Value Date Recorded Sex Assigned at Male 03/29/2024 3:10 PM BLIND LACER Legal Sex Male 7:49 PM CDT Gender Identity Not on file Sexual Orientation Not on file documented as of this encounter Plan of Treatment Upcoming Encounters Date Type Department Care Team (Late Contact Info) Description 12/30/2024 4:20 PM BLIND LACER Office Visit [facility] Family & Internal Medicine [facility] [address] [place] [address] Yoon Ayoub APRN [address] [place] [address] [place] [address] documented as of this encounter Visit Diagnoses Not on filedocumented in this encounter Additional Health Concerns Infection Onset Date Last Indicated Resolved Time COVID-19 Rule Out 01/16/2024 01/16/2024 01/16/2024 4:07 PM BLIND LACER documented as of this encounter Care Teams Chief Wheelage Clerk Relationship Specialty Start Date End Date Yoon Ayoub APRN [id number] [address] PCP - General NURSE PRACTITIONER 10/06/23 documented as of this encounter
[2024-11-03 10:41] VITALS: BP 131/80; PULSE 83; RESP 18; TEMP 35.8; O2SAT 100
--- NOTE | 2024-11-03 10:43 | ED.URI ---
HPI - URI/Sore Throat General Chief Complaint: Skin/Abscess/Foreign Body Stated Complaint: Allergic Reaction Time Seen by Provider: 11/03/24 10:43 Source: patient Mode of arrival: ambulatory Limitations: no limitations History of Present Illness HPI Narrative: 34 yo M presents with congestion, sinus pressure getting progressively worse over past 3.5wks. Taking pseudoephedrine without relief. Does see an outreach manager and gets allergy shots. Take Zyrtec daily. Is waiting on referral to ENT. All systems reviewed and negative except as noted above. Related Data Home Medications ?Medication ?Instructions ?Recorded ?Confirmed ?Last Taken ?Type buspirone 10 mg tablet 10 mg PO DAILY 01/31/23 01/31/23 Unknown History carboxymethylcellulose sodium 0.5 2 drp EACH EYE DAILY 01/31/23 01/31/23 Unknown History % eye drops (Refresh Tears) divalproex 250 mg tablet,extended 250 mg PO DAILY 01/31/23 01/31/23 Unknown History release 24 hr montelukast 10 mg tablet 10 mg PO HS 01/31/23 01/31/23 Unknown History ubrogepant 100 mg tablet (Ubrelvy) 100 mg PO DAILY 01/31/23 01/31/23 Unknown History aspirin 81 mg chewable tablet 81 mg PO DAILY 06/01/23 06/01/23 Unknown History cetirizine 10 mg tablet (Zyrtec) 10 mg PO DAILY 06/01/23 06/01/23 Unknown History dicyclomine 20 mg tablet 20 mg PO BID 06/01/23 06/01/23 Unknown History magnesium oxide 400 mg PO DAILY 06/01/23 06/01/23 Unknown History ondansetron HCl 8 mg tablet 8 mg PO Q12H 06/01/23 06/01/23 Unknown History propranolol 120 mg capsule,24 120 mg PO DAILY 06/01/23 06/01/23 Unknown History hr,extended release trazodone 100 mg tablet mg 06/01/23 06/01/23 Unknown History escitalopram oxalate 20 mg tablet mg 11/03/24 Unknown History fenofibrate 160 mg tablet mg 11/03/24 Unknown History syringe with needle 3 mL 23 gauge 11/03/24 11/03/24 Unknown History x 1 1/2 (BD Luer-Rylee Syringe) testosterone cypionate 200 mg/mL mg 11/03/24 Unknown History intramuscular oil Allergies Allergy/AdvReac Type Severity Reaction Status Date / Time SOMETHING WITH WELDING Allergy Severe Anaphylactic Uncoded 11/03/24 10:36 Shock PMFSH Comments At time of signature, agree with nursing past medical, surgical, social and family history. There is no relevant family history pertinent to the presenting complaint. Exam Narrative: GENERAL: This is a well-nourished, well-developed patient, in no apparent distress. HEAD: normocephalic, atraumatic. EYES: PERRL. Sclera clear/white. Vision is grossly intact. EARS: External ears normal, auditory canals clear and without drainage, Fluid bilateral TMs without erythema. good light reflex. No perforation bilaterally. Hearing grossly intact. NOSE: External nose normal with Purulent nasal drainage, erythema and swelling to bilateral nares THROAT: Mucous membranes moist, postnasal drainage with erythema and swelling. No exudates. NECK: Neck supple, non-tender without lymphadenopathy, masses or thyromegaly. CARDIOVASCULAR: Regular rate and rhythm without murmurs, gallops, or rubs. RESPIRATORY: Clear to auscultation. Breath sounds equal bilaterally. No wheezes, rales, or rhonchi. SKIN: warm, Dry, intact with no suspicious lesions or rash, good texture and turgor. NEURO: awake, alert, and oriented to person, place and time. There were no obvious focal neurologic abnormalities. EXTREMITIES: No joint tenderness, effusion, or edema noted. Course Course Level of Care: Express Care Visit Vital Signs Vital signs: Vital Signs Temperature 35.8 C L 11/03/24 10:41 Pulse Rate 83 11/03/24 10:41 Respiratory Rate 18 11/03/24 10:41 Blood Pressure 131/80 11/03/24 10:41 Pulse Oximetry 100 11/03/24 10:41 Oxygen Delivery Room Air 11/03/24 10:41 Temperature 35.8 C L 11/03/24 10:41 Pulse Rate 83 11/03/24 10:41 Respiratory Rate 18 11/03/24 10:41 Blood Pressure 131/80 11/03/24 10:41 Pulse Oximetry 100 11/03/24 10:41 Oxygen Delivery Room Air 11/03/24 10:41 Reviewed MDM - URI/Sore Throat MDM Narrative Medical decision making narrative: will treat patient for bacterial sinusitis due to duration of symptoms and exam findings. Patient is alert, nontoxic. Agrees with plan of care. Requesting steroids for his sinusitis. Differential Diagnosis Differential diagnosis: Likely upper respiratory infection, sinusitis, viral infection and pharyngitis Discharge Plan Discharge Clinical Impression: Acute bacterial sinusitis Patient Disposition: Home Condition: Stable Instructions: Antibiotic Form, Sinusitis (ED) Additional Instructions: Take mediations as prescribed. Continue over the counter Zyrtec and Flonase. Drink at least 64 ounces of water a day. See your doctor if not improving. Patient Language: Serbian Prescriptions: New amoxicillin 875 mg tablet 875 mg PO Q12H 10 Days Qty: 20 0RF methylprednisolone [Medrol (Mamadou)] 4 mg tablets,dose pack See Rx Instructions PO .COMPLEX Qty: 21 0RF Rx Instructions: orally per package directions No Action carboxymethylcellulose sodium [Refresh Tears] 0.5 % drops 2 drp EACH EYE DAILY buspirone 10 mg tablet 10 mg PO DAILY montelukast 10 mg tablet 10 mg PO HS divalproex 250 mg tablet extended release 24 hr 250 mg PO DAILY Ubrelvy 100 mg tablet 100 mg PO DAILY (DME) syringe with needle [BD Luer-Rylee Syringe] 3 mL 23 gauge x 1 1/2 syringe MISCELLANEOUS testosterone cypionate 200 mg/mL oil escitalopram oxalate 20 mg tablet fenofibrate 160 mg tablet cetirizine [Zyrtec] 10 mg Tablet 10 mg PO DAILY ondansetron HCl [Zofran] 8 mg Tablet 8 mg PO Q12H trazodone 100 mg tablet dicyclomine 20 mg Tablet 20 mg PO BID aspirin 81 mg Tablet,Chewable 81 mg PO DAILY propranolol 120 mg Capsule,Extended Release 24 Hr 120 mg PO DAILY magnesium oxide 400 mg magnesium Tablet 400 mg PO DAILY Follow-up/Referrals: Mega,Yoon Herrera APRN [Primary Care Provider, Unknown] Time of Disposition: 10:56
== END 2024-11-03 10:59 | disposition home or self-care (01) ==
PROVIDERS: Emergency Provider Nurse Practitioner Family; PCP Registered Nurse
DX: J01.90 Acute sinusitis, unspecified (principal); K21.9 Gastro-esophageal reflux disease without esophagitis; F41.9 Anxiety disorder, unspecified; F32.A Depression, unspecified; Z86.16 Personal history of COVID-19; Z79.82 Long term (current) use of aspirin
CPT/HCPCS: 99213; G0463